=== PATIENT | male | born 1990 | race Caucasian/White ===

== ENCOUNTER 2016-08-07 15:12 | Emergency (ER) | payer MEDICAID, OTHER ==
[~2016-08-07] VITALS: Ht 172.7 cm; Wt 65.0 kg
[2016-08-07 18:14] VITALS: BP 113/64
== END 2016-08-07 18:14 | disposition home or self-care (01) ==
LOC: ED 15:12
DX: M54.5 Low back pain (principal); G89.29 Other chronic pain; F32.1 Major depressive disorder, single episode, moderate; F43.10 Post-traumatic stress disorder, unspecified
CPT/HCPCS: 72072; J1170; J1885; Q0162

== ENCOUNTER 2016-10-01 10:05 | Emergency (ER) | payer OTHER, MEDICAID ==
[~2016-10-01] VITALS: Ht 172.7 cm; Wt 68.2 kg
[2016-10-01 12:20] VITALS: BP 132/78
== END 2016-10-01 13:00 | disposition home or self-care (01) ==
LOC: ED 10:05
DX: M25.532 Pain in left wrist (principal); F32.9 Major depressive disorder, single episode, unspecified; G89.29 Other chronic pain; M54.5 Low back pain; F43.10 Post-traumatic stress disorder, unspecified
CPT/HCPCS: J1885; Q0092

== ENCOUNTER 2016-12-10 22:29 | Emergency (ER) | payer OTHER, MEDICAID ==
[2016-12-11 01:33] VITALS: BP 123/77
== END 2016-12-11 01:33 | disposition home or self-care (01) ==
LOC: ED 22:29
DX: S93.402A Sprain of unspecified ligament of left ankle, initial encounter (principal); X50.1XXA Overexertion from prolonged static or awkward postures, initial encounter; Y93.89 Activity, other specified; Y92.89 Other specified places as the place of occurrence of the external cause; Y99.8 Other external cause status
CPT/HCPCS: Q0092

== ENCOUNTER 2017-01-10 09:32 | Emergency (ER) | payer MEDICAID, OTHER ==
[2017-01-10 10:24] VITALS: BP 132/74
== END 2017-01-10 10:24 | disposition home or self-care (01) ==
LOC: ED 09:32
DX: S96.912A Strain of unspecified muscle and tendon at ankle and foot level, left foot, initial encounter (principal); W14.XXXA Fall from tree, initial encounter; Y93.89 Activity, other specified; Y92.89 Other specified places as the place of occurrence of the external cause; Y99.8 Other external cause status
CPT/HCPCS: J1885; Q0092

== ENCOUNTER 2017-10-10 08:00 | Emergency (ER) | payer MEDICAID ==
[~2017-10-10] VITALS: Ht 177.8 cm; Wt 60.3 kg
[2017-10-10 08:09] VITALS: Ht 177.8 cm; Wt 60.3 kg
[2017-10-10 09:01] VITALS: BP 120/62
== END 2017-10-10 09:01 | disposition home or self-care (01) ==
LOC: ED 08:00
DX: M65.4 Radial styloid tenosynovitis [de Quervain] (principal); F32.9 Major depressive disorder, single episode, unspecified; G89.29 Other chronic pain; M54.5 Low back pain
CPT/HCPCS: A4570

== ENCOUNTER 2017-12-13 11:30 | Emergency (ER) | payer MEDICAID ==
[~2017-12-13] VITALS: Ht 172.7 cm; Wt 61.2 kg
[2017-12-13 11:32] VITALS: Ht 172.7 cm; Wt 61.2 kg
[2017-12-13 13:16] VITALS: BP 116/61
== END 2017-12-13 13:16 | disposition home or self-care (01) ==
LOC: ED 11:30
DX: M25.572 Pain in left ankle and joints of left foot (principal); G89.29 Other chronic pain; M54.5 Low back pain

== ENCOUNTER 2019-06-24 10:48 | Emergency (ER) | payer OTHER ==
[~2019-06-24] VITALS: Ht 172.7 cm; Wt 63.0 kg
[2019-06-24 10:52] VITALS: Ht 172.7 cm; Wt 63.0 kg
[2019-06-24 12:20] VITALS: BP 106/53
== END 2019-06-24 12:21 | disposition home or self-care (01) ==
LOC: ED 10:48
DX: M25.511 Pain in right shoulder (principal); G89.29 Other chronic pain; M54.5 Low back pain
CPT/HCPCS: J1885; Q0092

== ENCOUNTER 2019-07-19 10:43 | Emergency (ER) | payer OTHER ==
[~2019-07-19] VITALS: Ht 172.7 cm; Wt 61.2 kg
[2019-07-19 10:49] VITALS: Ht 172.7 cm; Wt 61.2 kg
[2019-07-19 11:48] VITALS: BP 103/62
== END 2019-07-19 11:48 | disposition home or self-care (01) ==
LOC: ED 10:43
DX: S43.421A Sprain of right rotator cuff capsule, initial encounter (principal); G89.29 Other chronic pain; M54.5 Low back pain; X50.0XXA Overexertion from strenuous movement or load, initial encounter; Y93.89 Activity, other specified; Y92.89 Other specified places as the place of occurrence of the external cause; Y99.8 Other external cause status
CPT/HCPCS: J1885